=== PATIENT | male | born 1985 | race African-American/Black ===

== ENCOUNTER 2023-09-06 13:13 | Inpatient (IN) | payer OTHER ==
[2023-09-06] MEDS ORDERED: NALOXONE HCL 0.4 MG/ML VIAL IM PRN (14:45)
[2023-09-06] MEDS ORDERED: BENZONATATE 200 MG CAPSULE PO PRN (14:45)
[2023-09-06] MEDS ORDERED: BENZOCAINE/MENTHOL (CHLORASEPTIC ) LOZENGE MM PRN (14:45)
[2023-09-06] MEDS ORDERED: NICOTINE POLACRILEX 2 MG GUM BUC PRN (14:45)
[2023-09-06] MEDS ORDERED: IBUPROFEN 400 MG TABLET (FP) PO PRN (14:45)
[2023-09-06] MEDS ORDERED: MAG HYDROX/AL HYDROX/SIMETH 30 ML UNIT-DOSE CUP PO PRN (14:45)
[2023-09-06] MEDS ORDERED: BISMUTH SUBSALICYLATE 524 MG/30 ML PO PRN (14:45)
[2023-09-06] MEDS ORDERED: LOPERAMIDE HCL 2 MG CAPSULE PO PRN (14:45)
[2023-09-06] MEDS ORDERED: LIDOCAINE 5% TOPICAL PATCH TP PRN (14:45)
[2023-09-06] MEDS ORDERED: DICYCLOMINE HCL 10 MG CAPSULE PO PRN (14:45)
[2023-09-06] MEDS ORDERED: NALOXONE HCL (KLOXXADO) 8 MG SPRAY NS PRN (14:45)
[2023-09-06] MEDS ORDERED: guaiFENesin 600 MG TABLET.ER (FP) PO PRN (14:45)
[2023-09-06] MEDS ORDERED: MAGNESIUM HYDROX 2400MG/30ML ORAL SUSPENSION 30 ML CUP PO PRN (14:45)
[2023-09-06] MEDS ORDERED: chlordiazePOXIDE HCL 25 MG CAPSULE PO PRN (14:45)
[2023-09-06] MEDS ORDERED: ONDANSETRON *ODT* 4 MG TABLET SL PRN (14:45)
[2023-09-06] MEDS ORDERED: NICOTINE POLACRILEX 2 MG LOZENGE BC PRN (14:45)
[2023-09-06] MEDS ORDERED: POLYETHYLENE GLYCOL (HEALTHYLAX) 3350 17 GM PACKET PO PRN (14:45)
[2023-09-06] MEDS: chlordiazePOXIDE HCL 25 MG CAPSULE PO SCH (16:56)
[2023-09-06] MEDS: LIDOCAINE PATCH REMOVAL MC SCH (21:18)
[2023-09-06] MEDS: MELATONIN 5 MG TABLETS PO SCH (22:09)
[2023-09-06] MEDS: THIAMINE HCL 100 MG TABLET (FP) PO SCH (22:09)
[2023-09-07] MEDS: chlordiazePOXIDE HCL 25 MG CAPSULE PO SCH (05:44)
[2023-09-07] MEDS: IBUPROFEN 600 MG TABLET (FP) PO PRN (05:46)
[2023-09-07] MEDS: PRENATAL VITAMINS W/ FOLIC ACID TABLET (FP) PO SCH (10:37)
[2023-09-07 11:00] LABS: MCH 30.9 pg (25.7-33.7); MCHC 32.5 g/dl (32.0-35.9); MEAN PLT VOLUME 8.9 fl (7.5-11.1); PLATELET COUNT 233 10^3/uL (134-434); RBC 3.89 M/mm3 (4.00-5.60); RDW 14.2 % (11.9-15.9)
[2023-09-07 11:13] LABS: CHLORIDE 101 mmol/L (98-107); POTASSIUM 3.6 mmol/L (3.5-5.1); SODIUM 138 mmol/L (136-145)
[2023-09-07 11:19] LABS: CALCIUM 9.4 mg/dL (8.5-10.1)
[2023-09-07 11:20] LABS: ALBUMIN 4.1 g/dl (3.4-5.0); ANION GAP 7 mmol/L (4-13); BLOOD UREA NITROGEN 7.6 mg/dL (7-18); CO2 29 mmol/L (21-32); GLUCOSE,RANDOM 63 mg/dL (74-106)
[2023-09-07 11:23] LABS: CREATININE 0.9 mg/dL (0.55-1.3); SGOT/AST 36 U/L (15-37); SGPT/ALT 45 U/L (13-61)
[2023-09-07 11:24] LABS: BILIRUBIN,TOTAL 0.6 mg/dL (0.2-1); TOT PROT 8.2 g/dl (6.4-8.2)
[2023-09-07 11:26] LABS: ALK PHOS 93 U/L (45-117)
[2023-09-07] MEDS: LACTULOSE 20 GM/30 ML UDC (FOR ORAL USE ONLY) PO SCH (14:13)
[2023-09-07] MEDS: ACETAMINOPHEN 325 MG TABLET (FP) PO PRN (17:28)
[2023-09-08] MEDS ORDERED: chlordiazePOXIDE HCL 10 MG CAPSULE PO PRN
[2023-09-08] MEDS: chlordiazePOXIDE HCL 10 MG CAPSULE PO SCH (05:51)
[2023-09-09] MEDS: chlordiazePOXIDE HCL 10 MG CAPSULE PO SCH (05:52)
[2023-09-09] MEDS: LIDOCAINE 4% PATCH TP ONE (10:11)
[2023-09-09 14:03] LABS: HIV INTERPRETATION NEGATIVE (NEGATIVE)
[2023-09-09] MEDS: METHOCARBAMOL 500 MG TABLET PO PRN (22:06)
[2023-09-09] MEDS: LIDOCAINE PATCH REMOVAL MC SCH (22:06)
[2023-09-10] MEDS: chlordiazePOXIDE HCL 10 MG CAPSULE PO ONE (05:26)
[2023-09-10 09:45] VITALS: BP 122/84; PULSE 79; RESP 18; TEMP 98
== END 2023-09-10 11:17 | disposition other institution (70) | DRG 774 ==
LOC: YASAS 13:13 → Y3N 15:38
PROVIDERS: ADMIT Allergy & Immunology; ATTEND Surgery
PROC: HZ2ZZZZ Detoxification Services for Substance Abuse Treatment (ICD-10-PCS; principal; 2023-09-06)
DX: F10.230 Alcohol dependence with withdrawal, uncomplicated (principal); F14.20 Cocaine dependence, uncomplicated; F12.20 Cannabis dependence, uncomplicated; F17.210 Nicotine dependence, cigarettes, uncomplicated; F19.282 Other psychoactive substance dependence with psychoactive substance-induced sleep disorder; F19.280 Other psychoactive substance dependence with psychoactive substance-induced anxiety disorder; F19.24 Other psychoactive substance dependence with psychoactive substance-induced mood disorder; E72.20 Disorder of urea cycle metabolism, unspecified; R07.81 Pleurodynia; R51.9 Headache, unspecified; Z56.0 Unemployment, unspecified; Z59.00 Homelessness unspecified
CPT/HCPCS: 36415; 80053; 80305; 80307; 82140; 85027; 86780; 87389; 87635; 87811; 93005; 93010

== ENCOUNTER 2023-09-10 11:23 | Inpatient (IN) | payer OTHER ==
[2023-09-10] MEDS ORDERED: NALOXONE (NYS OPIOID OVERDOSE PROGRAM) 4 MG/0.1 ML SPRAY NS PRN (14:28)
[2023-09-10] MEDS ORDERED: AMMONIUM LACTATE 12% LOTION 225 GM BOTTLE TP PRN (14:28)
[2023-09-10] MEDS ORDERED: POLYETHYLENE GLYCOL (HEALTHYLAX) 3350 17 GM PACKET PO PRN (14:28)
[2023-09-10] MEDS ORDERED: hydrOXYzine PAMOATE 25 MG CAPSULE (FP) PO PRN (14:28)
[2023-09-10] MEDS ORDERED: MAGNESIUM HYDROX 2400MG/30ML ORAL SUSPENSION 30 ML CUP PO PRN (14:28)
[2023-09-10] MEDS ORDERED: NICOTINE POLACRILEX 4 MG LOZENGE BC PRN (14:28)
[2023-09-10] MEDS ORDERED: NALOXONE HCL 0.4 MG/ML VIAL IVPUSH PRN (14:28)
[2023-09-10] MEDS ORDERED: METHOCARBAMOL 500 MG TABLET PO PRN (14:28)
[2023-09-10] MEDS ORDERED: ACETAMINOPHEN 325 MG TABLET (FP) PO PRN (14:28)
[2023-09-10] MEDS ORDERED: NICOTINE POLACRILEX 4 MG GUM BUC PRN (14:28)
[2023-09-10] MEDS ORDERED: MAG HYDROX/AL HYDROX/SIMETH 30 ML UNIT-DOSE CUP PO PRN (14:28)
[2023-09-10] MEDS ORDERED: guaiFENesin 600 MG TABLET.ER (FP) PO PRN (14:28)
[2023-09-10] MEDS ORDERED: BENZOCAINE/MENTHOL (CHLORASEPTIC ) LOZENGE MM PRN (14:28)
[2023-09-10] MEDS ORDERED: LOPERAMIDE HCL 2 MG CAPSULE PO PRN (14:28)
[2023-09-10] MEDS ORDERED: BENZONATATE 200 MG CAPSULE PO PRN (14:28)
[2023-09-10] MEDS: THIAMINE HCL 100 MG TABLET (FP) PO SCH (21:02)
[2023-09-10] MEDS: LIDOCAINE PATCH REMOVAL MC SCH (21:02)
[2023-09-10] MEDS: MELATONIN 5 MG TABLETS PO SCH (21:02)
[2023-09-10] MEDS: LACTULOSE 20 GM/30 ML UDC (FOR ORAL USE ONLY) PO SCH (21:03)
[2023-09-11] MEDS: PRENATAL VITAMINS W/ FOLIC ACID TABLET (FP) PO SCH (10:02)
[2023-09-11] MEDS: LIDOCAINE 5% TOPICAL PATCH TP SCH (10:03)
[2023-09-15] MEDS: IBUPROFEN 400 MG TABLET (FP) PO PRN (06:24)
[2023-09-16] MEDS ORDERED: LIDOCAINE 5% TOPICAL PATCH TP PRN (14:10)
[2023-09-16] MEDS ORDERED: LIDOCAINE PATCH REMOVAL MC PRN (14:20)
[2023-09-17] MEDS: IBUPROFEN 600 MG TABLET (FP) PO PRN (09:38)
[2023-09-29 07:27] VITALS: BP 118/82; PULSE 83; RESP 18; TEMP 97.5
== END 2023-09-29 11:26 | disposition home or self-care (01) | DRG 772 ==
LOC: YASAS 11:23 → Y3E 11:24
PROVIDERS: ADMIT Allergy & Immunology; ATTEND Psychiatry & Neurology Pain Medicine
PROC: HZ42ZZZ Group Counseling for Substance Abuse Treatment, Cognitive-Behavioral (ICD-10-PCS; principal; 2023-09-10)
DX: F10.20 Alcohol dependence, uncomplicated (principal); F14.20 Cocaine dependence, uncomplicated; F12.20 Cannabis dependence, uncomplicated; F17.210 Nicotine dependence, cigarettes, uncomplicated; F19.282 Other psychoactive substance dependence with psychoactive substance-induced sleep disorder; F41.9 Anxiety disorder, unspecified; R07.81 Pleurodynia
CPT/HCPCS: 82140